=== PATIENT | female | born 1945 | race Caucasian/White ===

== ENCOUNTER 2021-08-29 12:33 | Inpatient (IN) | payer MEDICARE, MEDICAID ==
[~2021-08-29] VITALS: Ht 154.9 cm; Wt 41.8 kg
[2021-08-29] VITALS (12 sets, daily range): BP systolic 116–148; BP diastolic 59–101
[2021-08-29 13:03] LABS: HEMATOCRIT 40.8 % (37.0-47.0); IMMATURE GRANULOCYTES 0.1 % (0.0-5.0); MEAN CELL VOLUME 94.2 fL CALC (80.0-100.0); MEAN CORPUSCULAR HGB CONC 31.9 g/dL CAL (32.0-36.0); NEUT# 6.02 thou/uL (2.00-7.15); RED BLOOD COUNT 4.33 mill/uL (4.20-5.60); RED CELL DISTRI WIDTH 14.7 % (11.5-15.5)
[2021-08-29 13:20] LABS: ALBUMIN 4.1 g/dL (3.2-5.0); ALKALINE PHOSPHATASE 125 u/l (38-126); ANION GAP 9 (6-22 (CALC)); BILIRUBIN, TOTAL 0.9 mg/dL (0.0-1.4); BUN 10 mg/dL (8-23); BUN/CREATININE RATIO 27 (12-20 (CALC)); CARBON DIOXIDE 33 mmol/l (22-30); CHLORIDE 99 mmol/l (95-108); CREATININE 0.4 mg/dL (0.5-1.0); GFR FOR AFR.AMER. > 60 ML/MIN (>=60 (CALC)); GFR OTHER RACES > 60 ML/MIN (>=60 (CALC)); POTASSIUM 4.1 mmol/l (3.5-5.1); SGOT/AST 30 u/l (9-36); SODIUM 137 mmol/l (137-146); TOTAL PROTEIN 7.6 g/dL (6.3-8.2)
[2021-08-29] MEDS ORDERED: PERCOCET1 TA4 PO (18:00)
[2021-08-29] MEDS ORDERED: MORPHINE SUL100 MG PO (18:01)
[2021-08-29] MEDS ORDERED: MUCINEX600 MG PO (18:04)
[2021-08-29] MEDS ORDERED: LINZESS145 MCG PO (18:04)
[2021-08-29] MEDS ORDERED: ALBUTEROL SUL0.083 % IN (18:05)
[2021-08-29] MEDS ORDERED: SYMBICORT1 AE1 IN (18:06)
[2021-08-29] MEDS ORDERED: VITAMIN B-12500 MCG PO (18:06)
[2021-08-29] MEDS ORDERED: VIT C/BIOFLV1000 MG PO (18:06)
[2021-08-30] VITALS (10 sets, daily range): BP systolic 110–169; BP diastolic 51–84
[2021-08-31 00:13] VITALS: BP 143/77
[2021-08-31 01:14] VITALS: BP 143/77
[2021-08-31 04:16] VITALS: BP 175/77
[2021-08-31 05:50] LABS: HEMATOCRIT 41.2 % (37.0-47.0); HEMOGLOBIN 13.2 g/dl (12.0-16.0); IMMATURE GRANULOCYTES 0.1 % (0.0-5.0); MEAN CELL VOLUME 94.1 fL CALC (80.0-100.0); MEAN CORPUSCULAR HGB 30.1 pG CALC (26.0-32.0); NEUT# 5.98 thou/uL (2.00-7.15); RED BLOOD COUNT 4.38 mill/uL (4.20-5.60); RED CELL DISTRI WIDTH 14.3 % (11.5-15.5)
[2021-08-31 06:00] VITALS: BP 175/77
[2021-08-31 06:00] LABS: ALBUMIN 3.9 g/dL (3.2-5.0); ALKALINE PHOSPHATASE 128 u/l (38-126); BUN 15 mg/dL (8-23); BUN/CREATININE RATIO 40 (12-20 (CALC)); CARBON DIOXIDE 33 mmol/l (22-30); CHLORIDE 99 mmol/l (95-108); CREATININE 0.4 mg/dL (0.5-1.0); GFR FOR AFR.AMER. > 60 ML/MIN (>=60 (CALC)); GFR OTHER RACES > 60 ML/MIN (>=60 (CALC)); MAGNESIUM 1.9 mg/dL (1.6-2.3); SGOT/AST 28 u/l (9-36); SODIUM 138 mmol/l (137-146); TOTAL PROTEIN 6.9 g/dL (6.3-8.2)
[2021-08-31 06:02] LABS: ANION GAP 11 (6-22 (CALC)); POTASSIUM 4.9 mmol/l (3.5-5.1)
[2021-08-31 06:07] LABS: BILIRUBIN, TOTAL 0.4 mg/dL (0.0-1.4)
[2021-08-31 07:18] VITALS: BP 120/60
[2021-08-31] MEDS ORDERED: ZITHROMAX250 MG PO (09:46)
[2021-08-31 09:47] VITALS: BP 150/64
[2021-08-31] MEDS ORDERED: OMNICEF300 MG PO (09:47)
[2021-08-31] MEDS ORDERED: DECADRON4 MG PO (09:48)
== END 2021-08-31 13:18 | disposition home health service (06) | DRG 190 ==
LOC: ED 12:33 → ED-I 13:50 → ED 16:49 → MS2 16:50
PROVIDERS: Family Medicine; Nurse Practitioner; ADMIT Internal Medicine; ATTEND Internal Medicine
DX: J44.1 Chronic obstructive pulmonary disease with (acute) exacerbation (principal); J18.9 Pneumonia, unspecified organism; E87.2 Acidosis; J44.0 Chronic obstructive pulmonary disease with (acute) lower respiratory infection; R09.02 Hypoxemia; I10 Essential (primary) hypertension; Z87.891 Personal history of nicotine dependence; Z20.822 Contact with and (suspected) exposure to COVID-19
CPT/HCPCS: J1650

== ENCOUNTER 2021-11-28 17:04 | Emergency (ER) | payer MEDICARE, MEDICAID ==
[~2021-11-28] VITALS: Ht 154.9 cm; Wt 44.0 kg
[~2021-11-28 17:04] MED LIST: ALBUTEROL SUL0.083 % IN; DECADRON4 MG PO; LINZESS145 MCG PO; MORPHINE SUL100 MG PO; MUCINEX600 MG PO; OMNICEF300 MG PO; PERCOCET1 TA4 PO; SYMBICORT1 AE1 IN; VIT C/BIOFLV1000 MG PO; VITAMIN B-12500 MCG PO; ZITHROMAX250 MG PO
[2021-11-28 17:41] VITALS: BP 184/142
[2021-11-28 17:42] VITALS: BP 155/84
[2021-11-28 17:42] LABS: HEMATOCRIT 39.8 % (37.0-47.0); HEMOGLOBIN 13.1 g/dl (12.0-16.0); IMMATURE GRANULOCYTES 0.2 % (0.0-5.0); MEAN CELL VOLUME 89.2 fL CALC (80.0-100.0); MEAN CORPUSCULAR HGB 29.4 pG CALC (26.0-32.0); MEAN CORPUSCULAR HGB CONC 32.9 g/dL CAL (32.0-36.0); NEUT# 10.06 thou/uL (2.00-7.15); RED BLOOD COUNT 4.46 mill/uL (4.20-5.60); RED CELL DISTRI WIDTH 13.3 % (11.5-15.5)
[2021-11-28 17:57] LABS: ALBUMIN 4.3 g/dL (3.2-5.0); ALKALINE PHOSPHATASE 103 u/l (38-126); BUN 14 mg/dL (8-23); BUN/CREATININE RATIO 39 (12-20 (CALC)); CARBON DIOXIDE 33 mmol/l (22-30); CHLORIDE 100 mmol/l (95-108); CREATININE 0.4 mg/dL (0.5-1.0); GFR FOR AFR.AMER. > 60 ML/MIN (>=60 (CALC)); GFR OTHER RACES > 60 ML/MIN (>=60 (CALC)); POTASSIUM 4.8 mmol/l (3.5-5.1); SGOT/AST 28 u/l (9-36); TOTAL PROTEIN 7.8 g/dL (6.3-8.2)
[2021-11-28 17:59] LABS: ANION GAP 11 (6-22 (CALC)); BILIRUBIN, TOTAL 0.6 mg/dL (0.0-1.4); SODIUM 139 mmol/l (137-146)
[2021-11-28 18:00] VITALS: BP 150/80
[2021-11-28 18:30] VITALS: BP 149/87
[2021-11-28] MEDS ORDERED: AMOX/K CLAV875 M1 PO (18:55)
[2021-11-28] MEDS ORDERED: ZPAK PO (18:55)
[2021-11-28 19:48] VITALS: BP 149/87
== END 2021-11-28 19:51 | disposition home or self-care (01) ==
LOC: ED 17:04
PROVIDERS: Family Medicine
DX: J18.9 Pneumonia, unspecified organism (principal); J44.0 Chronic obstructive pulmonary disease with (acute) lower respiratory infection; Z20.822 Contact with and (suspected) exposure to COVID-19

== ENCOUNTER 2021-12-13 09:35 | Observation (INO) | payer MEDICARE, MEDICAID ==
[~2021-12-13] VITALS: Ht 154.9 cm; Wt 43.1 kg
[2021-12-13] VITALS (58 sets, daily range): BP systolic 38–141; BP diastolic 16–87
[~2021-12-13 09:35] MED LIST changes: +AMOX/K CLAV875 M1 PO; +ZPAK PO
[2021-12-13 10:00] LABS: HEMATOCRIT 40.6 % (37.0-47.0); HEMOGLOBIN 12.9 g/dl (12.0-16.0); IMMATURE GRANULOCYTES 0.2 % (0.0-5.0); MEAN CELL VOLUME 91.4 fL CALC (80.0-100.0); MEAN CORPUSCULAR HGB 29.1 pG CALC (26.0-32.0); MEAN CORPUSCULAR HGB CONC 31.8 g/dL CAL (32.0-36.0); NEUT# 9.36 thou/uL (2.00-7.15); RED BLOOD COUNT 4.44 mill/uL (4.20-5.60); RED CELL DISTRI WIDTH 13.5 % (11.5-15.5)
[2021-12-13 10:11] LABS: ALKALINE PHOSPHATASE 129 u/l (38-126); ANION GAP 9 (6-22 (CALC)); BILIRUBIN, TOTAL 0.6 mg/dL (0.0-1.4); BUN 12 mg/dL (8-23); BUN/CREATININE RATIO 27 (12-20 (CALC)); CARBON DIOXIDE 34 mmol/l (22-30); CHLORIDE 101 mmol/l (95-108); CREATININE 0.4 mg/dL (0.5-1.0); GFR FOR AFR.AMER. > 60 ML/MIN (>=60 (CALC)); GFR OTHER RACES > 60 ML/MIN (>=60 (CALC)); POTASSIUM 3.9 mmol/l (3.5-5.1); SGOT/AST 27 u/l (9-36); SODIUM 140 mmol/l (137-146); TOTAL PROTEIN 7.5 g/dL (6.3-8.2)
[2021-12-14] VITALS (13 sets, daily range): BP systolic 98–146; BP diastolic 50–78
[2021-12-14 06:30] LABS: HEMATOCRIT 39.7 % (37.0-47.0); HEMOGLOBIN 13.3 g/dl (12.0-16.0); MEAN CELL VOLUME 87.4 fL CALC (80.0-100.0); MEAN CORPUSCULAR HGB 29.3 pG CALC (26.0-32.0); MEAN CORPUSCULAR HGB CONC 33.5 g/dL CAL (32.0-36.0); RED BLOOD COUNT 4.54 mill/uL (4.20-5.60); RED CELL DISTRI WIDTH 13.3 % (11.5-15.5)
[2021-12-14 06:56] LABS: ANION GAP 14 (6-22 (CALC)); BUN 17 mg/dL (8-23); BUN/CREATININE RATIO 43 (12-20 (CALC)); CARBON DIOXIDE 29 mmol/l (22-30); CHLORIDE 97 mmol/l (95-108); CREATININE 0.4 mg/dL (0.5-1.0); GFR FOR AFR.AMER. > 60 ML/MIN (>=60 (CALC)); GFR OTHER RACES > 60 ML/MIN (>=60 (CALC)); POTASSIUM 4.6 mmol/l (3.5-5.1); SODIUM 136 mmol/l (137-146)
[2021-12-15 04:19] VITALS: BP 136/68
[2021-12-15] MEDS ORDERED: DECADRON2 MG PO (10:15)
[2021-12-15] MEDS ORDERED: LEVAQUIN750 M1 PO (10:15)
[2021-12-15 10:16] VITALS: BP 125/57
[2021-12-15 10:49] VITALS: BP 125/57
[2021-12-15 14:45] VITALS: BP 152/79
[2021-12-15 19:00] VITALS: BP 148/75
[2021-12-16 00:33] VITALS: BP 179/80
[2021-12-16 02:16] VITALS: BP 171/80
[2021-12-16 05:00] VITALS: BP 149/74
[2021-12-16 06:20] VITALS: BP 131/69
[2021-12-16] MEDS ORDERED: LEVAQUIN750 M1 PO (12:08)
[2021-12-16] MEDS ORDERED: DECADRON2 MG PO (12:08)
== END 2021-12-16 14:04 | disposition home or self-care (01) ==
LOC: ED 09:35 → ED-I 11:20 → ED 11:33 → MS2 11:34 → ED-I 11:34 → MS2 12-14 06:47
PROVIDERS: Family Medicine; ADMIT Internal Medicine; ATTEND Internal Medicine
DX: J18.9 Pneumonia, unspecified organism (principal); J44.0 Chronic obstructive pulmonary disease with (acute) lower respiratory infection; J44.1 Chronic obstructive pulmonary disease with (acute) exacerbation; J96.11 Chronic respiratory failure with hypoxia; G89.29 Other chronic pain; Z99.81 Dependence on supplemental oxygen; Z59.1 Inadequate housing; Z79.891 Long term (current) use of opiate analgesic; Z87.891 Personal history of nicotine dependence; Z88.8 Allergy status to other drugs, medicaments and biological substances; Z20.822 Contact with and (suspected) exposure to COVID-19
CPT/HCPCS: J1650

== ENCOUNTER 2022-02-25 18:22 | Inpatient (IN) | payer MEDICARE, MEDICAID ==
[~2022-02-25] VITALS: Ht 167.6 cm; Wt 43.1 kg
[2022-02-25] VITALS (16 sets, daily range): BP systolic 33–165; BP diastolic 20–135
[~2022-02-25 18:22] MED LIST changes: +DECADRON2 MG PO; +LEVAQUIN750 M1 PO
[2022-02-25 19:20] LABS: HEMATOCRIT 42.6 % (37.0-47.0); HEMOGLOBIN 13.8 g/dl (12.0-16.0); IMMATURE GRANULOCYTES 0.2 % (0.0-5.0); MEAN CELL VOLUME 90.8 fL CALC (80.0-100.0); MEAN CORPUSCULAR HGB 29.4 pG CALC (26.0-32.0); MEAN CORPUSCULAR HGB CONC 32.4 g/dL CAL (32.0-36.0); NEUT# 15.03 thou/uL (2.00-7.15); RED BLOOD COUNT 4.69 mill/uL (4.20-5.60); RED CELL DISTRI WIDTH 13.6 % (11.5-15.5)
[2022-02-25 19:21] LABS: URINE BILIRUBIN - DIPSTICK NEGATIVE (NEGATIVE); URINE BLOOD DIPSTICK NEGATIVE (NEGATIVE); URINE COLOR YELLOW; URINE GLUCOSE - DIPSTICK NEGATIVE (NEGATIVE); URINE KETONE NEGATIVE (NEGATIVE); URINE LEUK ESTERASE NEGATIVE (NEGATIVE); URINE NITRITE - DIPSTICK NEGATIVE (Negative); URINE PH 6.5 (4.5-8.0); URINE PROTEIN - DIPSTICK TRACE mg/dL (NEG-TRACE); URINE SPECIFIC GRAVITY <=1.005; URINE UROBILINOGEN - DIPSTICK 0.2 E.U./dL (0.2)
[2022-02-25 19:31] LABS: ALKALINE PHOSPHATASE 138 u/l (38-126); ANION GAP 11 (6-22 (CALC)); BILIRUBIN, TOTAL 0.5 mg/dL (0.0-1.4); BUN 13 mg/dL (8-23); BUN/CREATININE RATIO 25 (12-20 (CALC)); CARBON DIOXIDE 33 mmol/l (22-30); CHLORIDE 102 mmol/l (95-108); CREATININE 0.5 mg/dL (0.5-1.0); GFR FOR AFR.AMER. > 60 ML/MIN (>=60 (CALC)); GFR OTHER RACES > 60 ML/MIN (>=60 (CALC)); POTASSIUM 3.8 mmol/l (3.5-5.1); SGOT/AST 21 u/l (9-36); SODIUM 142 mmol/l (137-146); TOTAL PROTEIN 7.2 g/dL (6.3-8.2)
[2022-02-26 04:20] VITALS: BP 135/76
[2022-02-26 05:14] LABS: HEMATOCRIT 40.7 % (37.0-47.0); HEMOGLOBIN 13.2 g/dl (12.0-16.0); IMMATURE GRANULOCYTES 0.2 % (0.0-5.0); MEAN CELL VOLUME 91.1 fL CALC (80.0-100.0); MEAN CORPUSCULAR HGB 29.5 pG CALC (26.0-32.0); MEAN CORPUSCULAR HGB CONC 32.4 g/dL CAL (32.0-36.0); NEUT# 11.06 thou/uL (2.00-7.15); RED BLOOD COUNT 4.47 mill/uL (4.20-5.60); RED CELL DISTRI WIDTH 13.6 % (11.5-15.5)
[2022-02-26 05:35] LABS: ALBUMIN 3.7 g/dL (3.2-5.0); ALKALINE PHOSPHATASE 124 u/l (38-126); ANION GAP 10 (6-22 (CALC)); BILIRUBIN, TOTAL 0.4 mg/dL (0.0-1.4); BUN 14 mg/dL (8-23); BUN/CREATININE RATIO 33 (12-20 (CALC)); CARBON DIOXIDE 34 mmol/l (22-30); CHLORIDE 102 mmol/l (95-108); CREATININE 0.4 mg/dL (0.5-1.0); GFR FOR AFR.AMER. > 60 ML/MIN (>=60 (CALC)); GFR OTHER RACES > 60 ML/MIN (>=60 (CALC)); POTASSIUM 4.5 mmol/l (3.5-5.1); SGOT/AST 20 u/l (9-36); SODIUM 142 mmol/l (137-146); TOTAL PROTEIN 6.7 g/dL (6.3-8.2)
[2022-02-26 06:23] VITALS: BP 124/69
[2022-02-26 06:46] VITALS: BP 124/69
[2022-02-26 10:39] VITALS: BP 134/73
[2022-02-26 16:09] VITALS: BP 150/75
[2022-02-26 18:45] VITALS: BP 127/91
[2022-02-27 00:23] VITALS: BP 134/76
[2022-02-27 06:09] VITALS: BP 136/73
[2022-02-27 07:16] LABS: HEMATOCRIT 41.6 % (37.0-47.0); HEMOGLOBIN 13.3 g/dl (12.0-16.0); IMMATURE GRANULOCYTES 0.2 % (0.0-5.0); MEAN CORPUSCULAR HGB 29.4 pG CALC (26.0-32.0); NEUT# 8.06 thou/uL (2.00-7.15); RED BLOOD COUNT 4.52 mill/uL (4.20-5.60); RED CELL DISTRI WIDTH 13.9 % (11.5-15.5)
[2022-02-27 07:39] LABS: ALBUMIN 3.8 g/dL (3.2-5.0); ALKALINE PHOSPHATASE 105 u/l (38-126); ANION GAP 14 (6-22 (CALC)); BUN 25 mg/dL (8-23); BUN/CREATININE RATIO 48 (12-20 (CALC)); CARBON DIOXIDE 32 mmol/l (22-30); CHLORIDE 102 mmol/l (95-108); CREATININE 0.5 mg/dL (0.5-1.0); GFR FOR AFR.AMER. > 60 ML/MIN (>=60 (CALC)); GFR OTHER RACES > 60 ML/MIN (>=60 (CALC)); SGOT/AST 18 u/l (9-36); SODIUM 142 mmol/l (137-146); TOTAL PROTEIN 6.7 g/dL (6.3-8.2)
[2022-02-27 07:49] LABS: BILIRUBIN, TOTAL 0.2 mg/dL (0.0-1.4)
[2022-02-27 10:05] VITALS: BP 126/67
[2022-02-27 15:33] VITALS: BP 145/78
[2022-02-27 19:00] VITALS: BP 125/67
[2022-02-27 19:12] VITALS: BP 125/67
[2022-02-28 00:02] VITALS: BP 127/58
[2022-02-28 00:32] VITALS: BP 127/58
[2022-02-28 04:00] VITALS: BP 118/61
[2022-02-28 04:46] VITALS: BP 118/61
[2022-02-28 05:45] LABS: HEMATOCRIT 37.5 % (37.0-47.0); HEMOGLOBIN 12.2 g/dl (12.0-16.0); IMMATURE GRANULOCYTES 0.1 % (0.0-5.0); MEAN CELL VOLUME 91.7 fL CALC (80.0-100.0); MEAN CORPUSCULAR HGB 29.8 pG CALC (26.0-32.0); MEAN CORPUSCULAR HGB CONC 32.5 g/dL CAL (32.0-36.0); NEUT# 9.27 thou/uL (2.00-7.15); RED BLOOD COUNT 4.09 mill/uL (4.20-5.60); RED CELL DISTRI WIDTH 13.7 % (11.5-15.5)
[2022-02-28 06:09] LABS: ALBUMIN 3.6 g/dL (3.2-5.0); ALKALINE PHOSPHATASE 94 u/l (38-126); ANION GAP 9 (6-22 (CALC)); BUN 19 mg/dL (8-23); BUN/CREATININE RATIO 38 (12-20 (CALC)); CARBON DIOXIDE 32 mmol/l (22-30); CHLORIDE 102 mmol/l (95-108); CREATININE 0.5 mg/dL (0.5-1.0); GFR FOR AFR.AMER. > 60 ML/MIN (>=60 (CALC)); GFR OTHER RACES > 60 ML/MIN (>=60 (CALC)); POTASSIUM 4.5 mmol/l (3.5-5.1); SGOT/AST 21 u/l (9-36); SODIUM 139 mmol/l (137-146); TOTAL PROTEIN 6.4 g/dL (6.3-8.2)
[2022-02-28 06:14] LABS: BILIRUBIN, TOTAL 0.3 mg/dL (0.0-1.4)
[2022-02-28 06:30] VITALS: BP 127/57
[2022-02-28 10:43] VITALS: BP 140/57
[2022-02-28] MEDS ORDERED: DECADRON2 MG PO (11:16)
[2022-02-28] MEDS ORDERED: LEVAQUIN750 M1 PO (11:17)
== END 2022-02-28 14:42 | disposition home health service (06) | DRG 190 ==
LOC: ED 18:22 → ED-I 20:00 → ED 20:33 → MS2 20:34
PROVIDERS: Emergency Medicine; Nurse Practitioner Family; ADMIT Internal Medicine; ATTEND Internal Medicine
DX: J44.1 Chronic obstructive pulmonary disease with (acute) exacerbation (principal); J18.9 Pneumonia, unspecified organism; J96.11 Chronic respiratory failure with hypoxia; J44.0 Chronic obstructive pulmonary disease with (acute) lower respiratory infection; Z20.822 Contact with and (suspected) exposure to COVID-19; Z99.81 Dependence on supplemental oxygen; Z87.891 Personal history of nicotine dependence